=== PATIENT | male | born 1980 | race Caucasian/White ===

== ENCOUNTER 2021-12-15 09:15 | Emergency (ER) | payer BC, SELFPAY ==
--- NOTE | ~2021-12-15 | XR_ITS ---
EXAMINATION: XR chest 2V DATE: 12/15/2021 10:04 INDICATION: Cough and shortness of breath TECHNIQUE: PA and lateral views of the chest are obtained. COMPARISON: 06/03/2012 FINDINGS: The lungs are free of acute opacities. No pleural effusion or pneumothorax. The cardiomedia stinal silhouette is normal. There is mild thoracic spondylosis. IMPRESSION: 1. No acute cardiopulmonary abnormality. Reviewed, dictated and finalized at location B.
[2021-12-15 09:16] VITALS: BP 164/117; PULSE 111; RESP 16; TEMP 36.5; O2SAT 99
[2021-12-15 09:20] LABS: Glucose Point of Care 366 mg/dl (65-105)
--- NOTE | 2021-12-15 09:42 | ECG_ITS ---
Measurements Intervals [place] Rate: 105 P: 51 UT: 141 QRS: -37 QRSD: 133 T: 23 QT: 361 QTc: 478 Interpretive Statements SINUS TACHYCARDIA LEFT AXIS DEVIATION INTRAVENTRICULAR CONDUCTION DELAY DELAYED PRECORDIAL R/S TRANSITION INFERIOR INFARCT, AGE INDETERMINATE BASELINE ARTIFACT- I, II, AVR ABNORMAL ECG NO PREVIOUS ECG AVAILABLE FOR COMPARISON Electronically Signed On 12-15-2021 11:16:51 CDT by Angel Mathis D.O.
[2021-12-15] MEDS: SODIUM CHLORIDE 0.9% IV 1,000 ML 999 ML IV CONT (10:06)
[2021-12-15 10:16] LABS: Basophils Absolute Auto 0.1 K/mm3 (0.0-0.1); Eosinophils Absolute Auto 0.2 K/mm3 (0-0.3); Eosinophils Percent Auto 2.2 % (0-4.4); Hematocrit 45.1 % (42.0-52.0); Hemoglobin 15.5 g/dL (14.0-18.0); Immature Granulocyte Absolute 0.05 K/mm3 (0.00-0.031); Immature Granulocyte Percent A 0.6 % (0-0.5); Lymphocytes Absolute Auto 2.45 K/mm3 (0.9-3.2); Lymphocytes Percent Auto 29.7 % (18.3-44.2); Mean Corpuscular HGB Conc 34.4 g/dl (32-36); Mean Corpuscular Hemoglobin 31.1 pg (26-34); Mean Corpuscular Volume 90.4 fl (80-100); Mean Platelet Volume 11.1 fl (7.4-10.4); Monocytes Absolute Auto 0.7 K/mm3 (0.1-0.6); Monocytes Percent Auto 8.2 % (2.6-8.5); Neutrophils Absolute Auto 4.8 K/mm3 (1.3-6.7); Neutrophils Percent Auto 58.3 % (45.5-73.1); Platelet Count Result 220 k/mm3 (150-375); Red Blood Count 4.99 M/mm3 (4.6-6.20); White Blood Count 8.3 K/mm3 (4.5-10.0)
[2021-12-15 10:20] LABS: Alanine Aminotransferase 106 U/L (6-50); Albumin Level 4.7 g/dL (3.5-5.1); Alkaline Phosphatase 123 U/L (38-126); Anion Gap 16 mmol/L (8-16); Aspartate Amino Transferase 73 U/L (17-59); Bilirubin,Total 0.6 mg/dL (0.2-1.3); Blood Urea Nitrogen 17 mg/dL (9-20); Calcium 9.1 mg/dL (8.4-10.2); Carbon Dioxide 23 mmol/L (22-30); Chloride 97 mmol/L (98-107); Estimated CRCL calculation 197 ml/min; Estimated Glomerular Filt Rate > 60; Glucose 369 mg/dL (65-110); Magnesium 1.8 mg/dL (1.6-2.3); Phosphorus 3.1 mg/dL (2.5-4.5); Potassium 3.8 mmol/L (3.4-5.0); Sodium 136 mmol/L (137-145)
[2021-12-15 10:20] LABS: Appearance Urine Clear (Clear); Bilirubin Urine Negative (Negative); Blood Urine Negative (Negative); Color Urine Yellow (Yellow); Glucose Urine UA 3+ mg/dL (Negative); Ketones Urine 1+ mg/dL (Negative); Leukocyte Esterase Ur Negative LEU/UL (Negative); Nitrate Urine Negative (Negative); Protein Urine Negative (Negative); Specific Grav Ur 1.015 (1.001-1.035); Urobilinogen Urine 0.2 mg/dL (<2.0); pH Urine 5.5 (5.0-9.0)
[2021-12-15 10:26] LABS: Mucus Urine Rare /lpf; RBC Urine 0-2 /hpf (0-2); WBC Urine 0-3 /hpf
[2021-12-15 10:30] LABS: Add Urine Microscopic? YES
[2021-12-15 10:43] LABS: Hemoglobin A1C 8.7 % (<5.7)
[2021-12-15] MEDS: INSULIN HUMAN REGULAR (*BKC) 100 UNITS/ML 8 UNITS SUB-Q (10:46)
--- NOTE | 2021-12-15 10:53 | ED.RECABL ---
HPI - Recheck/Abnormal Lab/Rx General Chief Complaint: Recheck/Abnormal Lab/Rx Stated Complaint: BG 586 Time Seen by Provider: 12/15/21 09:35 Source: patient, RN notes reviewed and old records reviewed Mode of arrival: ambulatory Limitations: no limitations History of Present Illness HPI narrative: This is a 41 year old male with history of hypertension and anxiety who presents for evaluation of elevated blood sugar. Patient states over the past few weeks he has had increased thirst and urination at night. He has been drinking more soda to help with his thirst. He also report fatigue. He denies nausea, vomiting, blurred vision, fever or chills. He reports long history of tingling to both his hand for weeks, and it was thought to be due to anxiety and hypertension. They have increased his antihypertensive medications. He denies previous history of diabetes mellitus. He denies recent steroid use. Related Data Home Medications Medication Instructions Recorded Confirmed calcium carbonate 500 mg calcium 500 mg PO DAILY 11/27/21 11/27/21 (1,250 mg) chewable tablet (Calcium 500) ferrous sulfate 325 mg (65 mg 325 mg PO DAILY 11/27/21 11/27/21 iron) tablet rpyuajdm-aytrslfv-rtrdl acid 400 tablet PO 11/27/21 11/27/21 mcg-vit K 20 mcg-lycop 300 mcg tablet (Men's Multivitamin) Allergies Allergy/AdvReac Type Severity Reaction Status Date / Time No Known Allergies Allergy Verified 11/27/21 14:26 Review of Systems Review of Systems: All systems reviewed & are unremarkable except as noted in HPI and below Constitutional: Constitutional: Denies chills, Reports fatigue and Denies fever(s) Eyes: Eyes: Denies change in vision and Denies photophobia Respiratory: Respiratory: Denies chest congestion and Reports cough Gastrointestinal: Gastrointestinal: Denies abdominal pain, Denies nausea and Denies vomiting Genitourinary: Genitourinary: Denies hematuria, Denies dysuria and Reports urinary frequency Neurologic: Denies focal weakness and Reports numbness Psychiatric: Psychiatric: Reports anxiety Endocrine: Endocrine: Reports polydipsia and Reports polyuria [facility] Past Medical History Medical History Anxiety Encounter for immunization Essential hypertension Gastroesophageal reflux Obesity Family History Family History Grandparent Family history of lymphoma Social History Social History (Updated 11/27/21 @ 14:29 by Alexandria Andrew [facility]) Smoking packs per day: 1 Smoking cigarettes per day: 20.0 Years smoked: 20 Smoking pack-years: 20.00 Smoking status: Former smoker Second hand tobacco smoke exposure: Yes Smoking end date: 10/24/16 Alcohol intake: never Substance use: never Substance use type: does not use Exam Const: General: no acute distress and alert Nutritional Appearance: obese Orientation/consciousness: patient oriented x3 Limitations: no limitations HENMT: Head: normal to inspection Face and sinus: normal facial exam Mouth: Yes Normal oral and palatal mucosa present, Yes lip normal and Yes moist mucous membranes Throat: posterior oropharynx normal Eyes: EOM: EOMs intact bilaterally Chest: Chest palpation & inspection: normal inspection of the chest Resp: Effort & Inspection: normal respiratory effort Auscultation: clear to auscultation bilaterally Cardio: Rate: regular rate Rhythm: regular rhythm Heart sounds: no murmurs GI: GI Palp: Yes Soft to palpation, No Tenderness to palpation present (GI), No Guarding due to palpation present (GI) and No Rigid due to palpation Auscultation: normal bowel sounds Skin: General skin exam: normal color Rashes: no rashes Neuro: General: patient oriented x3, moves all extremities and CN's II-XI intact bilaterally Cranial nerves: Yes Nystagmus not present Extrem: General: normal to
[2021-12-15 12:19] LABS: Glucose Point of Care 320 mg/dl (65-105)
[2021-12-15 12:52] VITALS: BP 158/118; PULSE 112; RESP 16; O2SAT 99
== END 2021-12-15 12:55 | disposition home or self-care (01) ==
PROVIDERS: Emergency Provider General Practice; PCP Family Medicine
DX: E11.65 Type 2 diabetes mellitus with hyperglycemia (principal); I10 Essential (primary) hypertension; F41.9 Anxiety disorder, unspecified; K21.9 Gastro-esophageal reflux disease without esophagitis; E66.9 Obesity, unspecified; Z68.41 Body mass index [BMI] 40.0-44.9, adult; Z87.891 Personal history of nicotine dependence; R00.0 Tachycardia, unspecified; I45.9 Conduction disorder, unspecified; R94.31 Abnormal electrocardiogram [ECG] [EKG]
CPT/HCPCS: 36415; 71046; 80053; 81001; 82948; 83036; 83735; 84100; 85025; 93005; 96360; 96361; 99284; J1815; J7030

== ENCOUNTER 2022-07-31 19:11 | Emergency (ER) | payer BC, SELFPAY ==
--- NOTE | ~2022-07-31 | XR_ITS ---
EXAM: XR ankle LT min 3V DATE: 07/31/2022 19:45 HISTORY: rolled left ankle today when he stepped in hole/lateral pain . COMPARISON: 09/23/2014. FINDINGS: Normal mineralization. No acute fracture or dislocation. Old distal fibular fracture. No l ytic or blastic lesion. Degenerative change at the tibiotalar joint and multiple midfoot joints. Dist al syndesmotic, plantar, and Achilles enthesopathy. No erosion or periosteal change. Soft tissues wit hin normal limits. IMPRESSION: No acute osseous finding in the left ankle. Reviewed, dictated and finalized at location K.
--- NOTE | 2022-07-31 19:12 | ED.LOWEXIN ---
HPI - Extremity Injury (Lower) General Chief Complaint: Extremity Injury, Lower Stated Complaint: ankle injury/left Time Seen by Provider: 07/31/22 19:12 Source: patient, RN notes reviewed and old records reviewed Mode of arrival: ambulatory Limitations: no limitations History of Present Illness HPI Narrative: 42-year-old male presents to the [facility] with complaints of left lateral ankle pain. States that he rolled it inward about 8:00 a.m. this morning. States it just keeps swelling. swelling over talus. Ecchymosis noted posterior malleolus lateral Currently using his own crutch Had taken a 1000 mg of Tylenol 1 time today Onset (ago): hour(s) (11-12) Injury: Left: ankle Type of Injury: inversion Severity: mild Treatments prior to arrival: other (Tylenol) Related Data Allergies Allergy/AdvReac Type Severity Reaction Status Date / Time No Known Allergies Allergy Verified 07/31/22 19:14 Review of Systems Review of Systems: All systems reviewed & are unremarkable except as noted in HPI and below Constitutional: Constitutional: Reports no additional constitutional complaints Eyes: Eyes: Reports no additional eye complaints ENT: Reports system reviewed and no additional complaints, except as documented Cardiovascular: Cardiovascular: Reports no additional cardiovascular complaints, Denies chest pain and Denies dyspnea Respiratory: Respiratory: Reports no additional respiratory complaints, Denies chest congestion, Denies cough and Denies dyspnea Gastrointestinal: Gastrointestinal: Reports no additional gastrointestinal complaints, Denies abdominal pain, Denies nausea and Denies vomiting Musculoskeletal: Musculoskeletal: Reports as per HPI, Reports arthralgias (lateral pain ) and Reports joint swelling (lateral malleolus) Integumentary/Breasts: Skin/Breast: Reports system reviewed and no additional complaints, except as docu Neurologic: Reports system reviewed and no additional complaints, except as documented Psychiatric: Psychiatric: Reports no additional psychiatric complaints Allergic/Immunologic: Allergic/Immunologic: Reports no additional allergic/immunologic complaints PMFSH Past Medical History Medical History Anxiety Diabetes type 2, uncontrolled Encounter for immunization Essential hypertension Gastroesophageal reflux Obesity Family History Family History Grandparent Family history of lymphoma Social History Social History (Reviewed 07/31/22 @ 19:24 by HUAN Sullivan Smoking packs per day: 1 Smoking cigarettes per day: 20.0 Years smoked: 20 Smoking pack-years: 20.00 Smoking status: Former smoker Second hand tobacco smoke exposure: Yes Smoking end date: 10/24/16 Alcohol intake: never Substance use: never Substance use type: does not use Lack of Transportation: No Lack of Food: Never True Current Housing: I Have Housing Concerned About Future Housing: No Difficulty Paying Gas/Electric Bills: No Difficulty Paying for Meds: No Currently Unemployed: YES Education: High School Diploma/GED Difficulty w/ Childcare or Family Care: No Comments At the time of my signature, I reviewed and agree with the nursing past medical, surgical, social, and family history. There is no relevant family history pertinent to the patient complaint. Exam Const: General: cooperative, healthy appearing, comfortable, no acute distress, well developed, alert and well nourished Nutritional Appearance: well nourished and obese Orientation/consciousness: patient oriented x3 Limitations: no limitations HENMT: Head: normal to inspection Ears: hearing grossly normal bilaterally and external ears normal Face/Nose/Sinus: Normal external nose present, Normal nares present, Normal nasal mucous membranes and turbinates present and normal facial exam Face and sinus: normal fac
[2022-07-31 19:14] VITALS: BP 155/94; PULSE 88; RESP 20; TEMP 37.7; O2SAT 100
== END 2022-07-31 20:07 | disposition home or self-care (01) ==
PROVIDERS: Emergency Provider Nurse Practitioner; PCP Family Medicine
DX: S93.402A Sprain of unspecified ligament of left ankle, initial encounter (principal); X50.9XXA Other and unspecified overexertion or strenuous movements or postures, initial encounter; E11.9 Type 2 diabetes mellitus without complications; I10 Essential (primary) hypertension; K21.9 Gastro-esophageal reflux disease without esophagitis; E66.9 Obesity, unspecified; Z68.41 Body mass index [BMI] 40.0-44.9, adult; Z87.891 Personal history of nicotine dependence
CPT/HCPCS: 73610; 99213; G0463

== ENCOUNTER 2023-08-06 16:57 | Emergency (ER) | payer BC, SELFPAY ==
--- NOTE | ~2023-08-06 | CT_ITS ---
EXAMINATION: CT abdomen pelvis w con DATE: 08/06/2023 20:19 INDICATION: abd pain, N/V/D, fevers TECHNIQUE: Computed tomography (CT) of the abdomen and pelvis was performed with 100 mL Omnipaque-350 intravenous contrast. Automated exposure control and iterative reconstruction technique were employe d. The dose-length product was 1958.05 mGy-cm. COMPARISON: None. FINDINGS: Lower thorax: Unremarkable Liver: Enlarged. Diffuse fatty infiltration. Biliary/Gallbladder: Gallbladder is normal. No bile duct dilation. Pancreas: No mass or duct dilation. Spleen: Normal. Adrenals:No mass. Kidneys: No suspicious mass, obstructing stone, or hydronephrosis. Subcentimeter left midpole and inf erior pole hypodensities too small to characterize but most likely represent cysts. GI tract: No small or large bowel dilation. Colonic wall edema involving the transverse colon Colonic submucosal fat as can be seen with chronic IBD, obesity, chemotherapy treatment, and celiac disease. Normal appendix. Mesentery/Peritoneum: No ascites, mass, or free air. Retroperitoneum: No mass. Pelvis: Pelvic organs are within normal limits. Soft Tissues: Small fat-containing uncomplicated umbilical hernia Bones: No acute osseous finding. IMPRESSION: Hepatomegaly and steatosis. Findings suggestive of colitis in the transverse colon. Reviewed, dictated and finalized at location K.
[2023-08-06 17:17] VITALS: BP 150/98; PULSE 50; RESP 20; TEMP 37.2; O2SAT 97
[2023-08-06 17:24] LABS: Glucose Point of Care 137 mg/dl (65-105)
--- NOTE | 2023-08-06 17:26 | ECG_ITS ---
SEE SCANNED COPY FOR CONFIRMED REPORT MTDD
[2023-08-06 18:20] VITALS: PULSE 110
[2023-08-06] MEDS: SODIUM CHLORIDE 0.9% IV 1,000 ML 999 ML IV CONT ×2 (18:57→19:35)
[2023-08-06 19:02] LABS: Basophils Percent Auto 0.2 % (0.2-1.2); Eosinophils Percent Auto 0.1 % (0-4.4); Hematocrit 46.6 % (42.0-52.0); Hemoglobin 15.9 g/dL (14.0-18.0); Immature Granulocyte Percent A 0.8 % (0-0.5); Immature Platelet Fraction Pct 5.5 % (0.9-11.2); Lymphocytes Absolute Auto 2.14 K/mm3 (0.9-3.2); Lymphocytes Percent Auto 16.3 % (18.3-44.2); Mean Corpuscular HGB Conc 34.1 g/dl (32-36); Mean Corpuscular Hemoglobin 31.1 pg (26-34); Mean Corpuscular Volume 91.2 fl (80-100); Mean Platelet Volume 11.3 fl (7.4-10.4); Monocytes Absolute Auto 1.7 K/mm3 (0.1-0.6); Monocytes Percent Auto 12.9 % (2.6-8.5); Neutrophils Absolute Auto 9.2 K/mm3 (1.3-6.7); Neutrophils Percent Auto 69.7 % (45.5-73.1); Platelet Count Result 168 k/mm3 (150-375); Red Blood Count 5.11 M/mm3 (4.6-6.20); Red Cell Distribution Width 12.8 % (11.5-14.5); White Blood Count 13.2 K/mm3 (4.5-10.0)
--- NOTE | 2023-08-06 19:06 | ED.NAVMDI ---
HPI - Nausea/Vomiting/Diarrhea General Chief complaint: Nausea/Vomiting/Diarrhea Stated complaint: n/v/d Time Seen by Provider: 08/06/23 18:35 Source: patient Mode of arrival: ambulatory Limitations: no limitations History of Present Illness HPI Narrative: Patient is a 43 y/o male who presents to the ED with c/o N/V/D. Patient reports he began feeling ill on Saturday night. States he developed diffuse body aches, nausea, vomiting, diarrhea, diffuse abdominal cramping, fever -T-max 102F. States he has been unable to keep down any food or drink due to persistent vomiting. Feels weak and dehydrated. Denies any sick contacts. Denies significant cough or cold symptoms. Denies rectal bleeding or melena. Denies family members w/ similar symptoms. Denies bad food exposure. Related Data Allergies Allergy/AdvReac Type Severity Reaction Status Date / Time No Known Allergies Allergy Verified 08/06/23 17:25 Review of Systems Review of Systems: CONSTITUTIONAL: Denies fever, chills, or sweats. ENT: Denies rhinorrhea, congestion, sore throat. CARDIOVASCULAR: Denies chest pain RESPIRATORY: Denies cough or dyspnea. GASTROINTESTINAL: See HPI. NEUROLOGIC: See HPI All systems reviewed & are unremarkable except as noted in HPI and below PMFSH Past Medical History Medical History Anxiety Diabetes type 2, uncontrolled Encounter for immunization Essential hypertension Gastroesophageal reflux Obesity Family History Family History Grandparent Family history of lymphoma Social History Social History Smoking packs per day: 1 Smoking cigarettes per day: 20.0 Years smoked: 20 Smoking pack-years: 20.00 Smoking status: Former smoker Second hand tobacco smoke exposure: Yes Smoking end date: 10/24/16 Alcohol intake: never Substance use: never Substance use type: does not use Lack of Transportation: No Lack of Food: Never True Current Housing: I Have Housing Concerned About Future Housing: No Difficulty Paying Gas/Electric Bills: No Difficulty Paying for Meds: No Currently Unemployed: YES Education: High School Diploma/GED Difficulty w/ Childcare or Family Care: No Exam Narrative: GENERAL: Well appearing, morbidly obese with BMI of 41.8, non-toxic, in no acute distress. HEAD: Normocephalic, atraumatic. RESPIRATORY: Airway patent, respirations nonlabored. Clear to auscultation bilaterally, no rales, rhonchi, wheezing. CARDIOVASCULAR: Borderline tachycardic with regular rhythm without murmurs, rubs, or gallops. ABDOMINAL: Soft, minimal diffuse nonspecific tenderness throughout abdomen, no significant focal tenderness, nondistended. Normoactive BS. MUSCULOSKELETAL: Moves all extremities. No gross deformities. SKIN: Warm, dry, normal color. NEURO: A&O X3. Speech clear. Cranial nerves II-XII grossly intact. Steady gait. No ataxic movements. PSYCHIATRIC: Appropriate mood and affect. Normal interaction. Course Vital Signs Vital signs: Vital Signs Temperature 99.0 F 08/06/23 17:17 Pulse Rate 50 L 08/06/23 17:17 Respiratory Rate 20 08/06/23 17:17 Blood Pressure 150/98 H 08/06/23 17:17 Pulse Oximetry 97 08/06/23 17:17 Oxygen Delivery Room Air 08/06/23 17:17 Temperature 99.3 F 08/06/23 22:15 Pulse Rate 117 H 08/06/23 22:15 Respiratory Rate 20 08/06/23 22:15 Blood Pressure 149/68 H 08/06/23 22:15 Pulse Oximetry 99 08/06/23 22:15 Oxygen Delivery Room Air 08/06/23 17:17 MDM - Nausea/Vomiting/Diarrhea MDM Narrative Medical decision making narrative: Patient presented to ED with nausea, vomiting, diarrhea, diffuse abdominal cramping, fevers. Patient tachycardic and borderline febrile upon arrival. Fluids, Zofran, Pepcid, Tylenol initiated. CBC with white blood cell coun
[2023-08-06 19:14] LABS: Influenza A QL RT-PCR Negative (Negative); Influenza B QL RT-PCR Negative (Negative); RSV RNA, RT-PCR Negative (Negative); SARS-CoV-2 RNA PCR Negative (Negative)
[2023-08-06 19:17] LABS: Appearance Urine Cloudy (Clear); Bacteria Urine None Seen /hpf; Bilirubin Urine 1+ (Negative); Blood Urine Negative (Negative); Color Urine Dark Yellow (Yellow); Glucose Urine UA Negative (Negative); Hyaline Casts Urine Present /lpf; Ketones Urine 1+ mg/dL (Negative); Leukocyte Esterase Ur Negative LEU/UL (Negative); Mucus Urine Present /lpf; Need Manual Microscopic Reviewed; Nitrate Urine Negative (Negative); Protein Urine 2+ mg/dL (Negative); RBC Urine 0-2 /hpf (0-2); Specific Grav Ur 1.035 (1.001-1.035); Squamous Epithelial Cell Urine Occasional /hpf (Few); Urobilinogen Urine 0.2 mg/dL (<2.0); WBC Urine 0-5 /hpf (0-3)
[2023-08-06 19:18] LABS: Add Urine Microscopic? YES
[2023-08-06 19:23] VITALS: TEMP 37.7
[2023-08-06 19:23] LABS: Alanine Aminotransferase 29 U/L (6-50); Albumin Level 4.1 g/dL (3.5-5.1); Alkaline Phosphatase 73 U/L (38-126); Anion Gap 11 mmol/L (4-12); Aspartate Amino Transferase 23 U/L (17-59); Bilirubin,Total 0.9 mg/dL (0.2-1.3); Blood Urea Nitrogen 14 mg/dL (9-20); Calcium 9.1 mg/dL (8.4-10.2); Carbon Dioxide 24 mmol/L (22-30); Chloride 101 mmol/L (98-107); Estimated CRCL calculation 125 ml/min; Estimated Glomerular Filt Rate > 60; Glucose 143 mg/dL (65-110); Lipase 113 U/L (23-300); Magnesium 1.6 mg/dL (1.6-2.3); Potassium 3.3 mmol/L (3.4-5.0); Sodium 136 mmol/L (137-145)
[2023-08-06] MEDS: ONDANSETRON INJ 4 MG/2 ML VIAL IV PUSH (19:34)
[2023-08-06] MEDS: FAMOTIDINE 20 MG/2 ML VIAL IV PUSH (19:36)
[2023-08-06] MEDS: ACETAMINOPHEN 500 MG TABLET 1000 MG PO (19:36)
[2023-08-06] MEDS: POTASSIUM CHLORIDE 20 MEQ ER TABLET 40 MEQ PO (19:37)
[2023-08-06] MEDS: MAGNESIUM SULF 2 GM/WATER 50ML 2 GM/50 ML BAG IVPB (20:47)
[2023-08-06] MEDS: CIPROFLOXACIN 500 MG TAB PO (21:56)
[2023-08-06] MEDS: metroNIDAZOLE 500 MG TABLET PO (21:57)
[2023-08-06 22:15] VITALS: BP 149/68; PULSE 117; RESP 20; TEMP 37.4; O2SAT 99
== END 2023-08-06 22:16 | disposition home or self-care (01) ==
PROVIDERS: Emergency Medicine; Emergency Provider Physician Assistant; PCP Family Medicine
DX: K52.9 Noninfective gastroenteritis and colitis, unspecified (principal); Z20.822 Contact with and (suspected) exposure to COVID-19; E11.9 Type 2 diabetes mellitus without complications; I10 Essential (primary) hypertension; K21.9 Gastro-esophageal reflux disease without esophagitis; E66.9 Obesity, unspecified; Z68.41 Body mass index [BMI] 40.0-44.9, adult; Z87.891 Personal history of nicotine dependence; Z79.85 Long-term (current) use of injectable non-insulin antidiabetic drugs; Z79.84 Long term (current) use of oral hypoglycemic drugs; R16.0 Hepatomegaly, not elsewhere classified; K76.0 Fatty (change of) liver, not elsewhere classified; R00.8 Other abnormalities of heart beat
CPT/HCPCS: 36415; 74177; 80053; 81001; 82948; 83690; 83735; 85025; 85055; 87637; 87804; 93005; 96361; 96365; 96375; 99284; A9270; J2405; J3475; J7030; Q9967

== ENCOUNTER 2024-05-06 16:38 | Emergency (ER) | payer BC, SELFPAY ==
[2024-05-06 16:49] VITALS: BP 98/65; PULSE 92; RESP 16; TEMP 37.2; O2SAT 100
--- NOTE | 2024-05-06 17:26 | ED_ITS ---
HPI - URI/Sore Throat General Chief Complaint: Upper Respiratory Infection Stated Complaint: Fever/Headache Time Seen by Provider: 05/06/24 17:22 Source: patient and RN notes reviewed Mode of arrival: ambulatory Limitations: no limitations History of Present Illness HPI Narrative: 44-year-old male presents concern for 5 day history cough, chest congestion, coughing fits, exertional shortness of breath. Reports he is having fevers. He had a fever this morning. He is taking [id number] medications for his symptoms. MD elicited complaint: fever and cough Related Data Allergies Allergy/AdvReac Type Severity Reaction Status Date / Time No Known Allergies Allergy Verified 05/06/24 16:40 Review of Systems Review of Systems: CONSTITUTIONAL: Reports malaise, fever. EYES: Denies visual changes, redness, or discharge. ENT: Denies rhinorrhea, congestion, sinus pain, otalgia and sore throat. CARDIOVASCULAR: Denies chest pain, palpitations, or edema. RESPIRATORY: Reports cough, chest congestion, exertional dyspnea. GASTROINTESTINAL: Denies abdominal pain, nausea, vomiting, diarrhea SKIN: Denies rash or itching. MUSCULOSKELETAL: Reports myalgia. NEUROLOGIC: Denies headache. All systems reviewed & are unremarkable except as noted in HPI and below PMFSH Past Medical History Medical History Diabetes type 2, uncontrolled Encounter for immunization Obesity Gastroesophageal reflux Essential hypertension Anxiety Family History Family History Grandparent Family history of lymphoma Social History Social History Smoking packs per day: 1 Smoking cigarettes per day: 20.0 Years smoked: 20 Smoking pack-years: 20.00 Smoking status: Former smoker Second hand tobacco smoke exposure: Yes Smoking end date: 10/24/16 Alcohol intake: never Substance use: never Substance use type: does not use Lack of Transportation: No Lack of Food: Never True Current Housing: I Have Housing Concerned About Future Housing: No Difficulty Paying Gas/Electric Bills: No Difficulty Paying for Meds: No Currently Unemployed: YES Education: High School Diploma/GED Difficulty w/ Childcare or Family Care: No Comments At time of signature, agree with nursing past medical, surgical, social and family history. There is no relevant family history pertinent to the presenting complaint Exam Narrative: GENERAL: Well-appearing, well-nourished, and in no acute distress. HEAD: Normocephalic EYES: PERRLA, conjunctivae clear ENT: Nares clear, turbinates edematous and erythematous, clear discharge. Mucous membranes moist. TM pearly vines with dull light reflex bilaterally; no tragal tenderness. Oropharynx not erythematous without lesions. Tonsils not enlarged and without exudate, no drooling, no hoarseness, no trismus, uvula midline. NECK: Supple. No lymphadenopathy CHEST: Clear to auscultation, breath sounds equal. No wheezing, rhonchi, rales, or stridor. No respiratory distress, speaks in full sentences. HEART: Regular rate and rhythm. No murmur heard. SKIN: Warm, dry, no rash. NEURO: Alert and oriented x3. PSYCH: Normal mood and affect Course Course Emergency Course: Patient is aware of diagnosis, understands and agrees to treatment plan. Anticipatory guidance given. Patient agrees to follow-up as directed and is aware of reasons to seek care at the emergency department. Portions of this record may have been created with voice recognition software Level of Care: Express Care Visit Vital Signs Vital signs: Vital Signs Temperature 98.9 F 05/06/24 16:49 Pulse Rate 92 05/06/24 16:49 Respiratory Rate 16 05/06/24 16:49 Blood Pressure 98/65 L 05/06/24 16:49 Pulse Oximetry 100 05/06/24 16:49 Oxygen Delivery Room Air 05/06/24 16:49 Temperature 98.9 F 05/06/24 16:49 Pulse Rate 92 05/06/24 16:49 Respiratory Rate 16 05/06/24 16:49 Blood Pressure 98/65 L 05/06/24 16:49 Pulse Oximetry 100 05/06/24 16:49 Oxygen Delivery Room Air 05/06/24 16:49 Reviewed. MDM - URI/Sore Throat MDM Narrative Medical decision making narrative: Differential diagnosis considered: Basurto virus, strep pharyngitis, allergic rhinitis, upper respiratory tract infection, sinusitis, rhinosinusitis, nasopharyngitis. viral pharyngitis, otitis media, otitis externa, pneumonia, bronchitis, viral cough syndrome, viral syndrome, and influenza. Exam findings show no acute concerns or changes; patient is non-toxic appearing and is in no distress. Patient is appropriate for outpatient treatment and follow-up. Lab Data Attestation: I reviewed the patient's lab results. Critical Care Time Critical Care Time Critical Care Time: No Discharge Plan Discharge Clinical Impression: Influenza A, Bronchitis Patient Disposition: Home, Self-Care Condition: Stable Instructions: Influenza (ED) Additional Instructions: -Take strict precautions to prevent the spread of your virus. Be diligent about covering your cough (even when you are alone) and washing your hands frequently. -You may contagious until you have been symptom and/or fever free for 24 hours w ithout fever reducing medicine -Alternate Ibuprofen and Tylenol for pain and fever relief (per package directions) -Drink plenty of fluid - drink fluid with electrolytes such as Gatorade or other oral re-hydration solution. Avoid caffeine, which can make dehydration worse. -Get plenty of rest to help your body heal. -Use a cool mist humidifier for chest and nasal congestion. -Eat RAW honey or use cough drops to ease throat discomfort -Do not smoke or expose children to secondhand smoke -Wash your hands frequently. -Please follow-up with your primary care doctor in the next 1-2 days if your sy mptoms do not improve. -If you have any worsening of symptoms or any other concerns please go to the ED immediately. -Please take medications as prescribed and continue taking your home medications as usual. Patient Language: Romanian Prescriptions: New methylprednisolone [Medrol (Aryan)] 4 mg tablets,dose pack See Rx Instructions .ROUTE .COMPLEX Qty: 21 0RF Rx Instructions: orally per package directions albuterol sulfate 90 mcg/actuation HFA aerosol inhaler 2 puff INHALATION QID PRN (Reason: shortness of breath or wheezing) Qty: 8.5 0RF No Action omeprazole 40 mg capsule,delayed release(DR/EC) 40 mg PO DAILY Qty: 30 2RF Mounjaro 7.5 mg/0.5 mL pen injector 7.5 mg subcut WEEKLY Qty: 2 0RF metformin 1,000 mg tablet 1,000 mg PO BID 90 Days Qty: 180 2RF losartan-hydrochlorothiazide 100-12.5 mg tablet See Rx Instructions .ROUTE .COMPLEX Qty: 30 5RF Dose Instruction: Take 1 tablet by mouth once daily Rx Instructions: Take 1 tablet by mouth once daily venlafaxine 150 mg capsule,extended release 24hr 150 mg PO QAM Qty: 90 1RF lamotrigine 150 mg tablet 150 mg PO DAILY Qty: 90 1RF metoprolol succinate 100 mg tablet extended release 24 hr See Rx Instructions .ROUTE .COMPLEX Qty: 180 1RF Dose Instruction: Take 2 tablets by mouth once daily Rx Instructions: Take 2 tablets by mouth once daily rosuvastatin 5 mg tablet 5 mg PO DAILY Qty: 90 1RF amlodipine 5 mg tablet 5 mg PO DAILY Qty: 30 5RF glimepiride 4 mg tablet 4 mg PO QAM Qty: 90 3RF Rx Instructions: administer with breakfast Follow-up/Referrals: Dayanara Davis MD [Primary Care Provider] - Time of Disposition: 17:31
[2024-05-06 17:34] LABS: EDCOVIDSCREEN Negative (Negative); EDINFLUASCREEN Positive (Negative); EDINFLUBSCREEN Negative (Negative)
[2024-05-06 18:19] LABS: EDSTREPNEGPOS1 Negative (Negative)
== END 2024-05-06 17:40 | disposition home or self-care (01) ==
PROVIDERS: Emergency Provider Nurse Practitioner; PCP Family Medicine
DX: J10.1 Influenza due to other identified influenza virus with other respiratory manifestations (principal); J40 Bronchitis, not specified as acute or chronic; Z20.822 Contact with and (suspected) exposure to COVID-19; E11.9 Type 2 diabetes mellitus without complications; Z79.84 Long term (current) use of oral hypoglycemic drugs; I10 Essential (primary) hypertension; K21.9 Gastro-esophageal reflux disease without esophagitis; E66.9 Obesity, unspecified; Z68.41 Body mass index [BMI] 40.0-44.9, adult; Z87.891 Personal history of nicotine dependence
CPT/HCPCS: 87081; 87426; 87804; 87880; 99213; G0463

== ENCOUNTER 2025-01-25 01:12 | Day surgery (SDC) | payer BC, SELFPAY ==
[2025-01-14 08:40] VITALS: BMI 37.6
--- OUTSIDE RECORDS SUMMARY | 2025-01-25 01:13 | XMS_ITS | Clinical Summary ---
Author Organization [facility] Care Team Providers Care Key Sander Name Role Phone Unavailable Primary Care Provider Unavailabl e Social History Tobacco Use Types Packs/Day Years Used Date Smoking Tobacco: Never Assessed Sex and Gender Information Value Date Recorded Sex Assigned at Not on file Legal Sex Male 12:35 PM CDT Gender Identity Not on file Sexual Orientation Not on file Plan of Treatment Health Maintenance Due Date Last Done Comments Hepatitis C Virus (HCV) Screening 1978 TdaP Immunization 1978 Hepatitis B Immunization (1 of 3 - 19+ 3-dose series) 1997 Cologuard 2023 Colonoscopy 2023 Colorectal Cancer Screening 2023 Immunochemical Fecal Occult Blood 2023 Influenza Immunization (#1) 2024 SARS-COV-2 Immunization ( season) 2024 Respiratory Syncytial Virus (RSV) Immunization (Adult) (1 - 1-dose 75+ series) 2053 Human Papillomavirus (HPV) Immunization Aged Out No longer eligible b ased on patient's age to complete this topic Meningococcal Immunization (ACWY) Aged Out No longer eligible based on patient's age to complete this topic Pneumococcal Immunization Combined Aged Out No longer eligible based on patient's age to complete this topic Rotavirus Immunization Aged Out No lo nger eligible based on patient's age to complete this topic
--- OUTSIDE RECORDS SUMMARY | 2025-01-25 01:13 | XMS_ITS ---
Author Organization Unknown ENCOUNTERS Encounter Performer Location Date Diagnosis Diagnosis Status Emergency [id number] [place] [address] [id number] DONNA Pre Admit [facility] [address] [place] [id number] Emergency [facility] [address] [place] [address] [id number] DONNA *Note: Encounters from your own facility or health system may be excluded. Allergies, Adverse Reactions, Alerts Allergen Type Severity Identification Date Medications Name Date Quantity Days Supplied [facility] Number
[2025-01-25 12:07] VITALS: BP 119/80; PULSE 86; RESP 20; TEMP 36.2; O2SAT 95
[2025-01-25] MEDS: LACTATED RINGERS 1,000 ML 150 ML IV CONT (12:26)
--- NOTE | 2025-01-25 13:14 | WPDANESEPPF ---
Anes - Initial Pre Proc Eval Procedure: Operation Date: 01/25/25 13:00 Proposed Procedures p Screening Colonoscopy - Saurav Eubanks MD Date/Time: 01/25/25 13:14 Surgeon: Saurav Eubanks MD Pre Op Diagnosis: Encounter for screening for malignant neoplasm of Patient Data Age: 44 Gender: M Height: 1.96 m Weight: 142.5 kg Last Vital Signs Temp 36.2 C L 01/25/25 12:07 Pulse 86 01/25/25 12:07 Resp 20 01/25/25 12:07 BP 119/80 01/25/25 12:07 Pulse Ox 95 01/25/25 12:07 O2 Del Method Room Air 01/25/25 12:07 Allergies Allergy/AdvReac Type Severity Reaction Status Date / Time No Known Allergies Allergy Verified 01/25/25 12:04 Home Medications ?Medication ?Instructions ?Recorded ?Confirmed ?Type omeprazole 40 mg capsule,delayed 40 mg PO DAILY #30 caps 12/22/19 01/25/25 Rx release glimepiride 4 mg tablet 4 mg PO QAM #90 tabs 05/06/24 01/25/25 Rx metformin 1,000 mg tablet 1,000 mg PO BID 90 days #180 tabs 07/31/24 01/25/25 Rx rosuvastatin 5 mg tablet 5 mg PO DAILY #90 tabs 08/18/24 01/25/25 Rx metoprolol succinate 100 mg See Rx Instructions .Route 08/19/24 01/25/25 Rx tablet,extended release 24 hr .COMPLEX #180 tabs venlafaxine 150 mg 150 mg PO QAM #90 caps 10/04/24 01/25/25 Rx capsule,extended release 24 hr losartan 100 See Rx Instructions .Route 11/11/24 01/25/25 Rx mg-hydrochlorothiazide 12.5 mg .COMPLEX #30 tabs tablet amlodipine 5 mg tablet 5 mg PO DAILY #30 tabs 11/12/24 01/25/25 Rx lamotrigine 200 mg tablet 200 mg PO DAILY #90 tabs 12/11/24 01/25/25 Rx tirzepatide 15 mg/0.5 mL 15 mg (0.5 mL) subcut WEEKLY #2 mL 12/22/24 01/25/25 Rx subcutaneous pen injector (Mounjaro) Laboratory Tests 01/25/25 12:23 POC Capillary Glucose 85 mg/dl (65-105) Patient hx anesthesia problems: none Family hx anesthesia problems: none Results Review: All pre-operative results and documents have been reviewed as part of the pre-operative evaluation. [facility] Past Medical History Medical History Diabetes type 2, uncontrolled Encounter for immunization Obesity Gastroesophageal reflux Essential hypertension Anxiety Family History Family History Grandparent Family history of lymphoma Social History Social History Smoking packs per day: 1 Smoking cigarettes per day: 20.0 Years smoked: 20 Smoking pack-years: 20.00 Smoking status: Former smoker Second hand tobacco smoke exposure: Yes Smoking end date: 10/24/16 Alcohol intake: never Substance use: never Substance use type: does not use Lack of Transportation: No Lack of Food: Never True Current Housing: I Have Housing Concerned About Future Housing: No Difficulty Paying Gas/Electric Bills: No Difficulty Paying for Meds: No Currently Unemployed: YES Education: High School Diploma/GED Difficulty w/ Childcare or Family Care: No Living arrangements: with family Spiritual care concerns: No Anes - Eval Final PreProcedure Day of Procedure 01/25/25 13:14 Patient weight: obese Heart: regular rate and rhythm Lungs: decreased breath sounds Airway: Mallampati scale class II Neurological: alert and oriented Last oral intake: >/= 8 hours ASA classification: III Emergent: no Anesthetic plan: proceed Anesthesia type and monitoring: general GIVS and standard monitoring Results Review: All pre-operative results and documents have been reviewed as part of the pre-operative evaluation. Informed Consent: The patient's anesthetic plan and its attendant risks and benefits were discussed with the patient/family/POA. Questions were solicited and answers provided to the satisfaction of the patient/family/POA.
--- NOTE | 2025-01-25 13:16 | PM.HPGS ---
History of Present Illness History of Present Illness Consent: Risks, benefits, and alternatives have been discussed and questions answered. Patient agrees to proceed with procedure. Chief complaint: Encounter for screening for malignant neoplasm of Narrative: Eber Bucio is a 44 year old male here for first screening colonoscopy Review of Systems Review of Systems: All systems reviewed & are unremarkable except as noted in HPI and below PMFSH Past Medical History Medical History (Updated 01/25/25 @ 13:18 by Saurav Eubanks MD) Colon cancer screening Diabetes type 2, uncontrolled Encounter for immunization Obesity Gastroesophageal reflux Essential hypertension Anxiety Family History Family History Grandparent Family history of lymphoma Social History Social History Smoking packs per day: 1 Smoking cigarettes per day: 20.0 Years smoked: 20 Smoking pack-years: 20.00 Smoking status: Former smoker Second hand tobacco smoke exposure: Yes Smoking end date: 10/24/16 Alcohol intake: never Substance use: never Substance use type: does not use Lack of Transportation: No Lack of Food: Never True Current Housing: I Have Housing Concerned About Future Housing: No Difficulty Paying Gas/Electric Bills: No Difficulty Paying for Meds: No Currently Unemployed: YES Education: High School Diploma/GED Difficulty w/ Childcare or Family Care: No Living arrangements: with family Spiritual care concerns: No Meds Home Medications and Allergies Home Medications ?Medication ?Instructions ?Recorded ?Confirmed ?Type omeprazole 40 mg capsule,delayed 40 mg PO DAILY #30 caps 12/22/19 01/25/25 Rx release glimepiride 4 mg tablet 4 mg PO QAM #90 tabs 05/06/24 01/25/25 Rx metformin 1,000 mg tablet 1,000 mg PO BID 90 days #180 tabs 07/31/24 01/25/25 Rx rosuvastatin 5 mg tablet 5 mg PO DAILY #90 tabs 08/18/24 01/25/25 Rx metoprolol succinate 100 mg See Rx Instructions .Route 08/19/24 01/25/25 Rx tablet,extended release 24 hr .COMPLEX #180 tabs venlafaxine 150 mg 150 mg PO QAM #90 caps 10/04/24 01/25/25 Rx capsule,extended release 24 hr losartan 100 See Rx Instructions .Route 11/11/24 01/25/25 Rx mg-hydrochlorothiazide 12.5 mg .COMPLEX #30 tabs tablet amlodipine 5 mg tablet 5 mg PO DAILY #30 tabs 11/12/24 01/25/25 Rx lamotrigine 200 mg tablet 200 mg PO DAILY #90 tabs 12/11/24 01/25/25 Rx tirzepatide 15 mg/0.5 mL 15 mg (0.5 mL) subcut WEEKLY #2 mL 12/22/24 01/25/25 Rx subcutaneous pen injector (Mounjaro) Allergies Allergy/AdvReac Type Severity Reaction Status Date / Time No Known Allergies Allergy Verified 01/25/25 12:04 Vital Signs Vital Signs - 24 hr 01/25/25 12:07 Temperature 97.1 F L Pulse Rate 86 Respiratory Rate 20 Blood Pressure 119/80 Pulse Oximetry 95 Oxygen Delivery Room Air Exam Const: General: comfortable and no acute distress HENMT: Face/Nose/Sinus: Normal nares present Eyes: General: appearance normal, both eyes and all related structures Neck: Neck: no JVD Resp: Auscultation: clear to auscultation bilaterally Cardio: Rate: regular rate Rhythm: regular rhythm GI: Inspection: non-distended GI Palp: Yes Soft to palpation Skin: General skin exam: normal color Extrem: General: normal to inspection Psych: Mental Status: mental status grossly normal Assessment and Plan Assessment and plan (1) Colon cancer screening: Code(s): Z12.11 - Encounter for screening for malignant neoplasm of colon Status: Acute Assessment and Plan: colonoscopy
[2025-01-25 13:35] VITALS: BP 119/92; PULSE 87; RESP 20; O2SAT 100
[2025-01-25 13:45] VITALS: BP 122/88; PULSE 86; RESP 17; O2SAT 100
[2025-01-25 13:55] VITALS: BP 154/93; PULSE 80; RESP 21; O2SAT 100
== END 2025-01-25 14:03 | disposition home or self-care (01) ==
PROVIDERS: PCP Family Medicine; Referring Provider Student in an Organized Health Care Education/Training Program; Visit Provider Internal Medicine Gastroenterology
PROC: 0DJD8ZZ Inspection of Lower Intestinal Tract, Via Natural or Artificial Opening Endoscopic (ICD-10-PCS; CPT 45378; principal; 2025-01-25 13:00)
DX: Z12.11 Encounter for screening for malignant neoplasm of colon (principal); E11.9 Type 2 diabetes mellitus without complications; K21.9 Gastro-esophageal reflux disease without esophagitis; I10 Essential (primary) hypertension; F41.9 Anxiety disorder, unspecified; E66.9 Obesity, unspecified; Z68.37 Body mass index [BMI] 37.0-37.9, adult; Z79.84 Long term (current) use of oral hypoglycemic drugs; Z79.85 Long-term (current) use of injectable non-insulin antidiabetic drugs; Z87.891 Personal history of nicotine dependence; Z80.7 Family history of other malignant neoplasms of lymphoid, hematopoietic and related tissues
CPT/HCPCS: 45378; 82948; J2003; J2704; J7120